=== PATIENT | female | born 1975 | race Two or more races ===

== ENCOUNTER → 2025-03-21 23:59 | Outpatient (BNV) | payer OTHER, SELFPAY | PROVIDERS: PCP Internal Medicine; Visit Provider Psychiatry & Neurology Neurology | DX: G56.22 Lesion of ulnar nerve, left upper limb (principal) | CPT/HCPCS: 95886; 95909 ==

== ENCOUNTER 2025-06-30 10:25 | Outpatient (REF) | payer OTHER, SELFPAY | END 2025-06-30 10:26 | disposition home or self-care (01) | LOC: HO.HPHYSR 10:25 | PROVIDERS: PCP Internal Medicine; Visit Provider Physical Medicine & Rehabilitation | DX: M46.1 Sacroiliitis, not elsewhere classified (principal); M53.3 Sacrococcygeal disorders, not elsewhere classified | CPT/HCPCS: 27096; J2003; J3301; Q9967 ==

== ENCOUNTER 2025-06-30 10:25 | Outpatient (AMB) | payer OTHER, SELFPAY ==
--- OUTSIDE RECORDS SUMMARY | 2024-05-06 13:46 | XMS_ITS | Encounter Summary ---
Author Organization [facility] Address [address] [place] [address] Care Team Providers Care Records Coordinator Name Role Phone Alvaro De León MD Primary Care Provider Encounter Details Date Type Department Care Team (Late st Contact Info) Description 05/06/2024 2:46 PM EDT Hospital Encounter TH HISTORIC ENCOUNTERS [facility] CONVERSION ONLY Social History Tobacco Use Types Packs/Day Years Used Date Smoking Tobacco: Never Smokeless Tobacco: Never Alcohol Use Standard Drinks/Week Comments Not Currently 0 (1 standard drink = 0.6 oz pur e alcohol) Comments Unknown Sex and Gender Information Value Date Recorded Sex Assigned at Female 01/24/2025 2:54 PM EDT Legal Sex Female 10:26 AM EST Gender Identity Female 08/03/2024 3:42 PM EST Sexual Orientation Lesbian or [place] 01/24/2025 2: 54 PM EDT Sexual Orientation Straight 01/24/2025 2: 54 PM EDT documented as of this encounter Last Filed Vital Signs Vital Sign Reading Time Taken Comments Blood Pressure - - Pulse - - Temperature - - Respiratory Rate - - Oxygen Saturation - - Inhaled Oxygen Concentration - - Weight 89.9 kg (198 lb 3.2 oz) 01/06/2024 1:19 P M EDT Height 156.2 cm (5' 1.5 ) 01/06/2024 1:19 PM EDT Body Mass Index 36.84 01/06/2024 1:19 PM EDT documented in this encounter Progress Notes * Historical, Notes Results - 05/06/2024 3:00 PM EDT 1455: PT arrives today for monthly B12 injection. PT denies any acute concerns at all, stable assessment. PT given water, denies concerns, call dominguez in reach. 1520: B12 administered into LEFT arm SQ, well tolerated without concern. PT provided with future apt reminders via calendar, denies other concerns, left unit, stable at D/C. documented in this encounter Plan of Treatment Upcoming Encounters Date Type Department Care Team (Late st Contact Info) Description 07/03/2025 2:00 PM EST Treatment [facility] Occupational Therapy [address] [phone] Opal Diego COTA 07/11/2025 1:15 PM EST Treatment [facility] Occupational Therapy [address] [phone] Ja Wetzel OT 07/31/2025 2:00 PM EST Office Visit [facility] Hematology Oncology [address] [place] [phone] Theresa Mejia PA [address] [place] [address] 08/30/2025 2:00 PM EST Office Visit Orthopedic Surgery [facility] 175 [facility] [address] [place] [phone] Arina Castaneda PA 175 [facility] [address] [place] [phone] 10/30/2025 2:00 PM EDT Office Visit Bariatric Surgery [facility] 175 [facility] [address] [place] [phone] Kyra Tinajero PA [address] [place] [phone] documented as of this encounter Goals Goal Patient Goal Type Associated Problems Recent Progress Patient-Stated? Author OT pt goals General Yes Miguel Haynes Note: For my arm to work better and have less pain OT LTGs 10-12 visits General No Miguel Haynes Note: Pt will report 0/10 pain in R sh at rest. Pt will demo R sh AROM improved by >=20* to improve ability to reach overhead cabinets. Pt will demo L sh flex AROM improved by >=20* to improve ability to dust shelves. Pt will demo B spice fumigator strength >=35 to improve ability to lift granddaughter. Pt will demo B pinch strength improved by >=3lbs to improve ability to open tight containers. Pt will demo increased functional use of BUEs evidenced by Qdash score <=25 to improve ability to do laundry. Pt will perform updated HEP Ledy. OT STGs 4-6 visits General No Miguel Haynes Note: Pt will report 2/10 pain in R sh at rest. Pt will demo R sh AROM improved by >=10* to improve ability to don pull-over shirt. Pt will demo L sh flex AROM improved by >=10* to improve ability to doff jacket. Pt will demo B spice fumigator strength >=28 to improve ability to carry groceries. Pt will demo B pinch strength improved by >=1lbs to improve ability to tear seasoning packets. Pt will demo increased functional use of BUEs evidenced by Qdash score <=40 to improve ability to meal prep. Pt will perform initial HEP Ledy. documented as of this encounter Visit Diagnoses Not on filedocumented in this encounter Care Teams Records Coordinator Relationship Specialty Start Date End Date Alvaro De León MD [address] [place] [address] PCP - General 04/25/24 documented as of this encounter
--- OUTSIDE RECORDS SUMMARY | 2025-06-29 14:00 | XMS_ITS | Encounter Summary ---
Author Organization [facility] Address [address] [place] [address] Care Team Providers Care Plate Shop Helper Name Role Phone Alvaro De León MD Primary Care Provider [phone] Reason for Referral * Orthopedic (Routine) - Pending Review Specialty Diagnoses / Procedures Referred By Mary Jane jones Referred To Contact Orthopedic Surgery / Orthopaedic Surgery Diagnoses Right shoulder pain Procedures L Inj/Asp: R subacromial bursa Arina Castaneda PA [address] [address] Phone: tel: fax: Referral ID Status Reason Start Date Expiration Date V isits Requested Visits Authorized [id number] Pending Review 06/29/2025 06/29/2026 1 1 Reason for Visit * Reason Comments Consult COMPLAINT SPECIALIST - R SHOULDER PAIN OCCASIONAL NUMBNESS AND TINGLING Pain COMPLAINT SPECIALIST - R SHOULDER PAIN OCCASIONAL NUMBNESS AND TINGLING Encounter Details Date Type Department Care Team (Late st Contact Info) Description 06/29/2025 2:00 PM EST Office Visit Orthopedic Surgery [facility] [address] [phone] Arina Castaneda PA [address] [address] Right shoulder pain (Primary Dx) Social History Tobacco Use Types Packs/Day Years [...] - Inhaled Oxygen Concentration - - Weight 77.1 kg (170 lb) 06/29/2025 2:05 PM EST Height 154.9 cm (5' 1 ) 06/29/2025 2:05 PM EST Body Mass Index 32.12 06/29/2025 2:05 PM EST documented in this encounter Progress Notes * NATALIE Mao - 06/29/2025 2:00 PM ESTAssociated Order(s): L Inj/Asp: R subacromial bursa Post-Procedure Diagnose(s): Right shoulder pain Referring MD:No ref. provider found Ms. Rae is a 49 y.o. year old female who presents for consultation regarding Chief Complaint Patient presents with ??? Right Shoulder - Consult, Pain COMPLAINT SPECIALIST - R SHOULDER PAIN OCCASIONAL NUMBNESS AND TINGLING . HPI: 49-year-old [id number]-lhdj-orgdccei here for different problem of right shoulder pain ongoing for the past year but worsening. She has been seen by myself and Dr. Benjamin for cubital tunnel syndrome. She did have a previous EMG nerve conduction test that did show mild ulnar neuropathy on the left. She reports right shoulder pain over subacromial space and bicipital groove. Worse with activity. No radicular symptoms. She does have neck issues and has had prior surgery on her cervical spine many years ago. When she last saw Dr. Dr. Benjamin recommended physical therapy for her elbows and shoulders and she just started this. The shoulder therapy is difficult due to pain and stiffness in the right shoulder. Patient does have a history of right shoulder lipoma treated surgically with a coupleyears ago. She does feel it may be coming back. PAST MEDICAL HISTORY: Past Medical History: Diagnosis Date ??? Allergic rhinitis 11/24/2013 DX:Allergic rhinitis ??? Anxiety state 08/04/2005 DX:Anxiety state ??? CTS (carpal tunnel syndrome) 09/02/2017 DX:CTS (carpal tunnel syndrome); COMMENT: Bilateral--by EMG 08/2017 ??? Depressive disorder 08/04/2005 DX:Depressive disorder ??? Fibromyalgia 01/09/2014 DX:Fibromyalgia ??? GERD (gastroesophageal reflux disease) 10/24/2019 DX:GERD (gastroesophageal reflux disease) ??? History of colon polyps DX:History of colon polyps; COMMENT: 2 diminutive tubular adenomas of the transverse colon. Repeat colonoscopy in 2022. ??? Hyperlipidemia 12/09/2018 DX:Hyperlipidemia ??? Iron deficiency anemia 05/21/2005 DX:Iron deficiency anemia ??? Lupus (systemic lupus erythematosus) ([facility] V24, [facility] V28) 11/10/2014 DX:Lupus (systemic lupus erythematosus) ([facility]) ??? Morbid obesity with BMI of 40.0-44.9, adult (CMS/HCC V24, CMS/[facility] V28) 05/21/2005 DX:Morbid obesity with BMI of 40.0-44.9, adult ([facility]); COMMENT: Had Sleeve gastrectomy 10/2012, Dr Anthony ??? Obstructive sleep apnea 02/16/2017 DX:Obstructive sleep apnea; COMMENT: CPAP started 02/03/17. ??? Osteoarthritis of lumbar spine 12/04/2020 DX:Osteoarthritis of lumbar spine; COMMENT: 2013 surgery ??? Vitamin D deficiency 08/26/2017 DX:Vitamin D deficiency PAST SURGICAL HISTORY: Past Surgical History: Procedure Laterality Date ??? ABDOMINAL SURGERY 10/2012 PROCEDURE: HISTORICAL ABDOMINAL SURGERY; COMMENT: gastric sleeve surgery ??? BACK SURGERY 07/2013 PROCEDURE: HISTORICAL BACK SURGERY; COMMENT: R L4-5 and BL L5-S1 decompression, L4-S1 fusion Dr. Kaminski ??? BREAST BIOPSY Left 04/2017 PROCEDURE: BX BREAST; PERC NEEDLE CORE W/IMAG GUID; COMMENT: neg ??? BREAST REDUCTION 09/2014 PROCEDURE: SC BREAST REDUCTION ??? CARPAL TUNNEL RELEASE Left 07/04/2021 PROCEDURE: SC NEUROPLASTY &/TRANSPOS MEDIAN NRV CARPAL TUNNE; COMMENT: Dr. Kaminski ??? CARPAL TUNNEL RELEASE Right 10/10/2021 PROCEDURE: SC NEUROPLASTY &/TRANSPOS MEDIAN NRV CARPAL TUNNE ??? COLONOSCOPY 03/25/2010 PROCEDURE: HISTORICAL COLONOSCOPY; COMMENT: hemorrhoids ??? COLONOSCOPY 10/15/2017 PROCEDURE: HISTORICAL COLONOSCOPY; COMMENT: 2 diminutive tubular adenomas of the transverse colon. Repeat colonoscopy in 2022. Internal hemorrhoids. ??? HYSTERECTOMY 2013 PROCEDURE: HISTORICAL HYSTERECTOMY; COMMENT: partial, still has cervix and ovaries; endometriosis ??? LIPOMA RESECTION Right shoulder ??? NECK SURGERY 01/2020 PROCEDURE: HISTORICAL NECK SURGERY; COMMENT: C5-[address] Kaminski ??? OTHER SURGICAL HISTORY 12/2014 PROCEDURE: HISTORICAL PANNICULECTOMY ??? OTHER SURGICAL HISTORY 06/20/2020 PROCEDURE: ---- OTHER ----; COMMENT: conversion of sleeve gastrectomy to Tai-en-Y ??? TUBAL LIGATION 02/2002 PROCEDURE: HISTORICAL TUBAL LIGATION ??? UPPER GASTROINTESTINAL ENDOSCOPY 06/12/2010 PROCEDURE: SC UPPER GI ENDOSCOPY PERFORMED; COMMENT: gastritis. gastric biopsy: reactive gastropathy(Hpylori-), small bowel biopsy: nl ??? WISDOM TOOTH EXTRACTION PROCEDURE: HISTORICAL WISDOM TEETH EXTRACTION ACTIVE PROBLEMS LIST: Patient Active Problem List Diagnosis ??? Iron deficiency anemia following bariatric surgery ??? Alkaline phosphatase elevation ??? DIANA positive ??? Anemia ??? Anxiety ??? Atrophy of muscle ??? Tendinosis ??? Carpal tunnel syndrome, bilateral ??? Chronic constipation ??? Class 1 obesity due to excess calories with serious comorbidity and body mass index (BMI) of 33.0 to 33.9 in adult ??? Chronic pain of right knee ??? Cobalamin deficiency ??? Colon polyps ??? COVID-19 ??? Depression ??? Detrusor overactivity ??? Chronic back pain ??? Chronic headaches ??? Chronic pain syndrome ??? Fibromyalgia ??? GERD (gastroesophageal reflux disease) ??? Grieving ??? Hyperlipidemia ??? Hypertension ??? Insomnia ??? Moderate major depression (CMS/HCC V24, CMS/HCC V28) ??? Obstructive sleep apnea ??? Osteoarthritis of cervical spine ??? Osteoarthritis of lumbar spine ??? Pelvic floor dysfunction in female ??? Restless legs syndrome ??? Rosacea ??? Severe obesity (CMS/HCC V24, CMS/HCC V28) ??? Therapeutic opioid-induced constipation (OIC) ??? Urinary incontinence ??? Vitamin D deficiency ??? Bariatric surgery status ACTIVE MEDICATIONS: Current Outpatient Medications on File Prior to Visit Medication Sig Dispense Refill ??? amLODIPine (NORVASC) 2.5 mg tablet Take 1 tablet (2.5 mg total) by mouth 1 (one) time each day. ??? azelaic acid (FINACEA) 15 % gel Apply topically daily. After skin is thoroughly washed and patted dry, gently but thoroughly massage a thin film of azelaic acid cream into the affected area once daily - ??? azelastine (ASTELIN) 137 mcg (0.1 %) nasal spray spray or apply 1 spray inside Nose 2 (two) times a day. Use in each nostril as directed ??? cetirizine (ZyrTEC) 10 mg tablet Take 1 tablet (10 mg total) by mouth 1 (one) time each day. ??? cholecalciferol (VITAMIN D-3) 50 mcg (2,000 unit) capsule Take 1 capsule (2,000 Units total) bymouth 1 (one) time each day. ??? cyanocobalamin, vitamin B-12, 1,000 mcg tablet, sublingual Place 1,000 mcg under the tongue 1 (one) time each day. ??? docusate sodium (COLACE) 100 mg capsule Take 1 capsule (100 mg total) by mouth 1 (one) time each day. ??? folic acid (FOLVITE) 1 mg tablet Take 1 tablet (1 mg total) by mouth 1 (one) time each day. 90 each 1 ??? hydrocortisone 2.5 % cream Apply topically 2 (two) times a day. Apply sparingly to affected areas twice daily as needed ??? hydrOXYzine pamoate (VISTARIL) 25 mg capsule Take 1 capsule (25 mg total) by mouth 1 (one) timeeach day. ??? ketoconazole (NIZORAL) 2 % shampoo Apply topically 2 (two) times a week. Apply to damp skin, lather, leave on 5 minutes, and rinse ??? lactulose (CHRONULAC) solution Take 15 mL (10 g total) by mouth 2 (two) times a day. ??? MAGNESIUM ORAL Take 3 capsules by mouth daily. - Oral ??? MULTIVITAMIN WITH MINERALS ORAL Take by mouth. ??? naloxegoL (MOVANTIK) 25 mg tablet Take 1 tablet (25 mg total) by mouth 1 (one) time each day. ??? ondansetron (ZOFRAN) 4 mg tablet Take 1 tablet (4 mg total) by mouth every 8 (eight) hours if needed for nausea. 21 tablet 0 ??? OXcarbazepine (TRILEPTAL) 300 mg tablet Take 1 tablet (300 mg total) by mouth 2 (two) times a day. ??? oxyCODONE-acetaminophen (PERCOCET) 5-325 mg per tablet Take 1 tablet by mouth every 4 (four) hours if needed for moderate pain or severe pain. ??? pantoprazole (PROTONIX) 40 mg EC tablet Take 1 tablet (40 mg total) by mouth 1 (one) time each day before breakfast. Do not crush, chew, or split. 30 each 2 ??? polyethylene glycol (MIRALAX) 17 gram packet Take 17 g by mouth 1 (one) time each day. ??? propranolol LA (INDERAL LA) 120 mg 24 hr capsule Take 1 capsule (120 mg total) by mouth 1 (one)time each day. ??? pyridoxine (B-6) 100 mg tablet Take 1 tablet (100 mg total) by mouth 1 (one) time each day. ??? rOPINIRole (REQUIP) 1 mg tablet Take 1 tablet (1 mg total) by mouth 3 (three) times a day. ??? simethicone (MYLICON) 80 mg chewable tablet Chew 1 tablet (80 mg total) every 6 (six) hours if needed for flatulence. ??? simethicone (MYLICON) 80 mg chewable tablet Chew 1 tablet (80 mg total) every 6 (six) hours if needed (gas & bloating). 120 tablet 0 ??? swab (NO-STING SKIN-PREP MISC) Apply 1 spray topically 2 (two) times a day. When changing bandages ??? tirzepatide, weight loss, (Zepbound) 10 mg/0.5 mL injection Inject 0.5 mL (10 mg total) under the skin every 7 (seven) days. 2 mL 0 ??? tiZANidine (ZANAFLEX) 2 mg tablet Take 1 tablet (2 mg total) by mouth 2 (two) times a day as needed (for muscle spasm). ??? traZODone (DESYREL) 50 mg tablet Take 1 tablet (50 mg total) by mouth every night at bedtime. Take 1-3 tablets by mouth at bedtime ??? triamcinolone acetonide (KENALOG-40) 40 mg/mL injection Inject 1 mL (40 mg total) into the joint 1 (one) time. ??? valACYclovir (VALTREX) 500 mg tablet Take 1 tablet (500 mg total) by mouth. ??? busPIRone (BUSPAR) 15 mg tablet Take 1 tablet (15 mg total) by mouth 3 (three) times a day. No current facility-administered medications on file prior to visit. ALLERGIES: Allergies Allergen Reactions ??? Adhesive Tape-Silicones ??? Amoxicillin Diarrhea ??? Animal Dander cats ??? Silver Rash PHYSICAL EXAM: Visit Vitals Ht 1.549 m (61 ) Wt 77.1 kg (170 lb) BMI 32.12 kg/m?? Smoking Status Never BSA 1.76 m?? APPEARANCE: Alert and in no acute distress EXTREMITIES: Right shoulder on the anterior aspect he has a healed surgical excision from prior lipoma removal. Adjacent and proximal to this incision she does have what looks like another lipoma forming. No other skin abnormalities, swelling or atrophy seen. Active forward flexion is 158 with pain, internal rotation L1 and external rotation 50. Passively forward flexion 160 with pain, abduction external rotation to 100 and external rotation 55. Positive Neer's and Jay test and positive [place]'s test. Pain over bicipital groove and subacromial space. Strength intact in IR, ER and supraspinatus. LABS: None IMAGING: I did order a left elbow x-ray today however patient went down to our x-ray and had a little bit ofwai and was unable to stay.t XR Shoulder 2+ Views Right Date of Visit: 06/29/2025 Reason for visit: Right shoulder pain Views: AP, Grashey, Y, axillary right shoulder Comparison: 2020 Findings: Bone spur formation at the lateral and inferior portion of the acromion. Mild AC joint arthritis. No significant narrowing of subacromial space or proximal migration humeral head. No glenohumeral arthritis. Cystic changes at the humeral head. No calcifications Impression: Mild AC joint arthritis and bone spur formation. Cystic changes at humeral head. No acute findings. EMG nerve conduction test: Nerve test was done March 21 at [facility] which did show cubital tunnel on the left ASSESSMENT AND PLAN: 1. Right shoulder pain The details of the visit were reviewed with the patient. Pertinent history, and objective findings were reviewed, along with the diagnoses: Right shoulder bursitis. Cannot completely rule out labral pathology. Recommended continued physical therapy but also discussed cortisone injection to subacromial space to help with pain and inflammation. Proceeded with cortisone injection to right subacromial space. Follow-up in 2 months time for clinical recheck. At that time we can also check her elbow and see how her cubital tunnel syndrome symptoms are feeling. L Inj/Asp: R subacromial bursa Indications: pain Details: 22 G needle, anterolateral approach Medications: 3 mL lidocaine 1 %; 40 mg triamcinolone acetonide 40 mg/mL Informed Consent: Laterality: Right Relevant images/test results available and reviewed: yes Health status cleared: Yes Procedure/treatment, purpose, treatment alternatives, risks/potential complications and benefits explained: yes Risk/complications/benefits details: Risks of infection, thinning of the skin and temporary skin discoloration discussed. Discussed risks of temporary increased pain after injection and swelling and mild redness at injection site for couple days. Explained occasionally cortisone injection can causefacial flushing temporarily. Benefits pain management. For postop injection pain ice, Tylenol and/or NSAIDs if patient can take Patient questions answered: yes Patient agrees, verbalizes understanding, and wants to proceed: yes Consent given by: Patient Informed consent discussion completed by Physician/DEAN with patient: Verbal Pre-procedure timeout performed: yes Ros Rae acknowledges understanding of the above plan and agrees to follow recommendations and/or take medications as prescribed. NATALIE Mao cc: No ref. provider found documented in this encounter Plan of Treatment Upcoming Encounters Date Type Department Care Team (Dilcia Contact Info) Description 07/03/2025 2:00 PM EST Treatment [facility] Occupational Therapy 175 [facility] [address] [place] [phone] Opal Diego COTA 07/11/2025 1:15 PM EST Treatment [facility] Occupational Therapy 175 [facility] [address] [place] [phone] Ja Wetzel, OT 07/31/2025 2:00 PM EST Office Visit [facility] Hematology Oncology [address] [place] [phone] Theresa Mejia PA [address] [place], [place] [phone] 08/30/2025 2:00 PM EST Office Visit Orthopedic Surgery [facility] 175 [facility] [address] [place] [phone] Arina Castaneda PA 175 [facility] [address] [place] [phone] 10/30/2025 2:00 PM EDT Office Visit Bariatric Surgery [facility] 175 [facility] [address] [place] [phone] Kyra Tinajero PA [address] [place] [phone] documented as of this encounter Goals Goal [...] to dust shelves. Pt will demo B stripper and opaquer apprentice strength >=35 to improve ability to lift granddaughter. Pt will demo B pinch strength improved by >=3lbs to improve ability to open tight containers. Pt will demo increased functional use of BUEs evidenced by Qdash score <=25 to improve ability to do laundry. Pt will perform updated HEP Ledy. OT STGs 4-6 visits Miguel Ernandez Note: Pt will report 2/10 pain in R sh at rest. Pt will demo R sh AROM improved by >=10* to improve ability to don pull-over shirt. Pt will demo L sh flex AROM improved by >=10* to improve ability to doff jacket. Pt will demo B stripper and opaquer apprentice strength >=28 to improve ability to carry groceries. Pt will demo B pinch strength improved by >=1lbs to improve ability to tear seasoning packets. Pt will demo increased functional use of BUEs evidenced by Qdash score <=40 to improve ability to meal prep. Pt will perform initial HEP Ledy. documented as of this encounter Procedures Procedure Name Priority Date/Time Associated Diagnosis Comments SC ARTHROCENTESIS/ASPI RATION/INJECTION MAJOR JOINT/BURSA W/O U/S GUIDANCE Routine 06/29/2025 2:00 PM EST Right shoulder pain documented in this encounter Results * XR Shoulder 2+ Views Right (06/29/2025 2:53 PM EST) Anatomical Region Laterality Modality Upper Extremities, Shoulder Right Comp uted Radiography Narrative 06/29/2025 3:51 PM EST Date of Visit: 06/29/2025 Reason for visit: Right shoulder pain Views: AP, Grashey, Y, axillary right shoulder Comparison: 2020 Findings: Bone spur formation at the lateral and inferior portion of the acromion. Mild AC joint arthritis. No significant narrowing of subacromial space or proximal migration humeral head. No glenohumeral arthritis. Cystic changes at the humeral head. No calcifications Impression: Mild AC joint arthritis and bone spur formation. Cystic changes at humeral head. No acute findings. us Arina ESTRADA IMG XR PROCEDURES Final Resul t * SC ARTHROCENTESIS/ASPIRATION/INJECTION MAJOR JOINT/BURSA W/O U/S GUIDANCE (06/29/2025 2:00 PM EST) Arina Hickman PA - 06/29/2025 2:00 PM EST NATALIE Mao 06/29/2025 3:54 PM L Inj/Asp: R subacromial bursa Indications: pain Details: 22 G needle, anterolateral approach Medications: 3 mL lidocaine 1 %; 40 mg triamcinolone acetonide 40 mg/mL Informed Consent: Laterality: Right Relevant images/test results available and reviewed: yes Health status cleared: Yes Procedure/treatment, purpose, treatment alternatives, risks/potential complications and benefits explained: yes Risk/complications/benefits details: Risks of infection, thinning of the skin and temporary skin discoloration discussed. Discussed risks of temporary increased pain after injection and swelling and mild redness at injection site for couple days. Explained occasionally cortisone injection can cause facial flushing temporarily. Benefits pain management. For postop injection pain ice, Tylenol and/or NSAIDs if patient can take Patient questions answered: yes Patient agrees, verbalizes understanding, and wants to proceed: yes Consent given by: Patient Informed consent discussion completed by Physician/DEAN with patient: Verbal Pre-procedure timeout performed: yes us Arina ESTRADA IN CLINIC/BEDSIDE ORDERABLES Final Result documented in this encounter Visit Diagnoses Diagnosis Right shoulder pain- Primary Pain in joint, shoulder region documented in this encounter Administered Medications Inactive Administered Medications - up to 3 most recent administrations Medication Order MAR Action Action Date Dose Rate Site lidocaine (XYLOCAINE) 1 % injection 3 mL 3 mL, Once PRN Procedure, Starting on Noris 06/29/25 at 1400, For 1 doseIndications:Right shoulder pain Given 06/29/2025 2:00 PM EST 3 mL triamcinolone acetonide (KENALOG-40) 40 mg/mL injection 40 mg 40 mg, Once PRN Procedure, Starting on Noris 06/29/25 at 1400, For 1 doseIndications:Right shoulder pain Given 06/29/2025 2:00 PM EST 40 mg documented in this encounter Care Teams Plate Shop Helper Relationship Specialty Start Date End Date Alvaro De León MD [address] [place] [id number] PCP - General 04/25/24 documented as of this encounter
[2025-06-30 10:32] VITALS: BP 176/91; PULSE 71; BMI 32.1
--- NOTE | 2025-06-30 10:32 | A.PHYSOV ---
Vital Signs 06/30/25 10:32 Height 5 ft 1 in Weight 170 lb BMI 32.1 BP 176/91 H Pulse 71 Intake Visit Reasons: Left Sacroiliac Joint Injection Allergies adhesive Allergy (Unknown, Verified 06/28/25 12:34) Unknown amoxicillin Allergy (Unknown, Verified 06/28/25 12:34) Unknown Seasonal Allergies Allergy (Unknown, Verified 06/28/25 12:34) Unknown silicone Allergy (Unknown, Uncoded 06/28/25 12:34) Unknown [facility] Medical History (Updated 06/30/25 @ 10:45 by Alvin Romo DO) Sacroiliac inflammation Sacroiliac dysfunction Surgical History H/O tubal ligation (Unknown) History of neck surgery (Unknown) H/O: hysterectomy (Unknown) History of gastric bypass (Unknown) History of carpal tunnel surgery (Unknown) History of back surgery (Unknown) Social History Household Members: Significant Other Alcohol intake: current Alcohol intake frequency: holidays/special occasions only Patient Tobacco Use Status: Never used Tobacco Current occupational status: unemployed Physical Exam Vital Signs: Last Vital Signs Pulse 71 06/30/25 10:32 BP 176/91 H 06/30/25 10:32 BMI result Body Mass Index 32.1 Office Procedures AMB Sacroiliac Joint Injection AMB Sacroiliac Joint Injection Procedure Details: Procedure performed: Left sacroiliac joint injection Preop diagnosis: SI joint mediated pain, sacroiliitis Postop diagnosis: The same Anesthesia: Local After informed consent was obtained patient was brought into the procedure room and placed in prone position on the procedure table. Skin over lumbar sacral area was prepped and draped in the usual sterile manner. The inferior portion of the left sacroiliac joint was visualized utilizing fluoroscopy. 5 in 22 gauge spinal needle was introduced percutaneously and advanced into the joint. Needle placement was verified utilizing 0.5 cc of Omnipaque contrast solution. 2.5 cc of therapeutic solution containing 40 mg of triamcinolone and 2% lidocaine was injected after negative aspiration for blood. The C-arm was obliqued about 30? in the contralateral direction an area just medial the proximal portion of the sacroiliac joint was visualized. 5 in 22 gauge spinal needle was introduced percutaneously and advanced to enter the area. Once in place, needle placement was identified utilizing 1 cc of Omnipaque contrast solution. Total volume of 2.5 cc containing 40 mg of triamcinolone and 2% lidocaine was injected to block the lateral branches at the sacroiliac ligament. Radiation exposure was documented in the chart. Sacroiliac Joint Injections 39620 - use with FL Gd order: Left All charges added?: Procedure code (CPT) selection complete Office Meds Kenalog 40 mg/mL suspension for injection Performing Provider: Alvin Romo DO Performing Location: [facility] Administered by: Alvin Romo DO on 06/30/25 10:46 Dose Route Admin Location Dispensed Lot Number Expiration Date [facility] [employer] 80 mg intra-articular 2 mL [id number] [employer] Total Dispensed Waste 2 mL 0 % lidocaine (PF) 20 mg/mL (2 %) injection solution Performing Provider: Alvin Romo DO Per[facility] Administered by: Alvin Romo DO on 06/30/25 10:46 Dose Route Admin Location Dispensed Lot Number Expiration Date [facility] [employer] 120 mg intra-articular 10 mL [id number] [employer] Total Dispensed Waste 10 mL 40 % Omnipaque 300 300 mg iodine/mL intravenous solution Performing Provider: Alvin Romo DO Performing [facility] Administered by: Alvin Romo DO on 06/30/25 10:46 Dose Route Admin Location Dispensed Lot Number Expiration Date [facility] [employer] 3 mL intra-articular 10 mL [id number] [employer] Total Dispensed Waste 10 mL 70 % Assessment & Plan Assessment & Plan (1) Sacroiliac dysfunction: Code(s): M53.3 - Sacrococcygeal disorders, not elsewhere classified Category: Medical Plan: Procedure (2) Sacroiliac inflammation: Code(s): M46.1 - Sacroiliitis, not elsewhere classified Category: Medical Plan: Procedure Orders: Orders [place] Guided Sacroiliac Jt Inj LT Today M46.1 - Sacroiliitis, not elsewhere classified, M53.3 - Sacrococcygeal disorders, not elsewhere classified AMB Sacroiliac Joint Injection Today M46.1 - Sacroiliitis, not elsewhere classified, M53.3 - Sacrococcygeal disorders, not elsewhere classified Coding Level of Care Code Procedure Only Diagnoses Sacroiliac dysfunction M53.3 Sacroiliac inflammation M46.1 CPT Codes AMB Sacroiliac Joint Injection - Hip intraarticular Injection - 46997: Left ([id number])
--- OUTSIDE RECORDS SUMMARY | 2025-06-30 12:11 | XMS_ITS | Clinical Summary ---
Author Organization [facility] Address [address] [place] [address] Phone Care Team Providers Care Billing Auditor Name Role Phone Alvaro De León MD Primary Care Provider [phone] Allergies Active Allergy Reactions Criticality Noted Date Comments Adhesive Tape-Silicones 03/16/2023 Amoxicillin Diarrhea 02/10/2012 Animal Dander 03/16/2023 cats Silver Rash 05/02/2021 Medications amLODIPine (NORVASC) 2.5 mg tablet Take 1 tablet (2.5 mg total) by mouth 1 (one) time each day. 2 Active azelaic acid (FINACEA) 15 % gel Apply topically daily. After skin is thoroughly washed and patted dry, gently but thoroughly massage a thin film of azelaic acid cream into the affected area once daily - Active azelastine (ASTELIN) 137 mcg (0.1 %) nasal spray spray or apply 1 spray inside Nose 2 (two) times a day. Use in each nostril as directed 1 Active busPIRone (BUSPAR) 15 mg tablet Take 1 tablet (15 mg total) by mouth 3 (three) times a day. 1 Active cetirizine (ZyrTEC) 10 mg tablet Take 1 tablet (10 mg total) by mouth 1 (one) time each day. 2 Active cholecalciferol (VITAMIN D-3) 50 mcg (2,000 unit) capsule Take 1 capsule (2,000 Units total) by mouth 1 (one) time each day. 3 Active cyanocobalamin, vitamin B-12, 1,000 mcg tablet, sublingual Place 1,000 mcg under the tongue 1 (one) time each day. 3 Active docusate sodium (COLACE) 100 mg capsule Take 1 capsule (100 mg total) by mouth 1 (one) time each day. 2 Active hydrocortisone 2.5 % cream Apply topically 2 (two) times a day. Apply sparingly to affected areas twice daily as needed Active hydrOXYzine pamoate (VISTARIL) 25 mg capsule Take 1 capsule (25 mg total) by mouth 1 (one) time each day. 8 Active ketoconazole (NIZORAL) 2 % shampoo Apply topically 2 (two) times a week. Apply to damp skin, lather, leave on 5 minutes, and rinse Active lactulose (CHRONULAC) solution Take 15 mL (10 g total) by mouth 2 (two) times a day. 2 Active MAGNESIUM ORAL Take 3 capsules by mouth daily. - Oral 3 Active MULTIVITAMIN WITH MINERALS ORAL Take by mouth. Activ e naloxegoL (MOVANTIK) 25 mg tablet Take 1 tablet (25 mg total) by mouth 1 (one) time each day. Active OXcarbazepine (TRILEPTAL) 300 mg tablet Take 1 tablet (300 mg total) by mouth 2 (two) times a day. Active oxyCODONE-acetam inophen (PERCOCET) 5-325 mg per tablet Take 1 tablet by mouth every 4 (four) hours if needed for moderate pain or severe pain. 2 Active polyethylene glycol (MIRALAX) 17 gram packet Take 17 g by mouth 1 (one) time each day. 0 Active propranolol LA (INDERAL LA) 120 mg 24 hr capsule Take 1 capsule (120 mg total) by mouth 1 (one) time each day. 3 Active pyridoxine (B-6) 100 mg tablet Take 1 tablet (100 mg total) by mouth 1 (one) time each day. Active rOPINIRole (REQUIP) 1 mg tablet Take 1 tablet (1 mg total) by mouth 3 (three) times a day. Active simethicone (MYLICON) 80 mg chewable tablet Chew 1 tablet (80 mg total) every 6 (six) hours if needed for flatulence. 3 Active swab (NO-STING SKIN-PREP MISC) Apply 1 spray topically 2 (two) times a day. When changing bandages 2 Active tiZANidine (ZANAFLEX) 2 mg tablet Take 1 tablet (2 mg total) by mouth 2 (two) times a day as needed (for muscle spasm). 3 Active traZODone (DESYREL) 50 mg tablet Take 1 tablet (50 mg total) by mouth every night at bedtime. Take 1-3 tablets by mouth at bedtime Active triamcinolone acetonide (KENALOG-40) 40 mg/mL injection Inject 1 mL (40 mg total) into the joint 1 (one) time. Active valACYclovir (VALTREX) 500 mg tablet Take 1 tablet (500 mg total) by mouth. 9 Active folic acid (FOLVITE) 1 mg tablet Take 1 tablet (1 mg total) by mouth 1 (one) time each day. 90 each 1 5 04/04/20 26 Active simethicone (MYLICON) 80 mg chewable tablet Chew 1 tablet (80 mg total) every 6 (six) hours if needed (gas & bloating). 120 tablet 5 Active tirzepatide, weight loss, (Zepbound) 10 mg/0.5 mL injection Inject 0.5 mL (10 mg total) under the skin every 7 (seven) days. 2 mL 5 Active ondansetron (ZOFRAN) 4 mg tabletIndication s:Class 1 obesity due to excess calories with serious comorbidity and body mass index (BMI) of 33.0 to 33.9 in adult,Bariatric surgery status Take 1 tablet (4 mg total) by mouth every 8 (eight) hours if needed for nausea. 21 tablet 5 Active pantoprazole (PROTONIX) 40 mg EC tablet Take 1 tablet (40 mg total) by mouth 1 (one) time each day before breakfast. Do not crush, chew, or split. 30 each 2 08/22/19 26 Active Hospital, Clinic, or Other Facility Administered Medication Ordered Dose Route Frequency Start Date End Date Status lidocaine (XYLOCAINE) 1 % injection 3 mLIndications:Right shoulder pain 3 mL Once PRN Procedure 06/29/2025 06/29/2025 Ended triamcinolone acetonide (KENALOG-40) 40 mg/mL injection 40 mgIndications:Right shoulder pain 40 mg Once PRN Procedure 06/29/2025 06/29/2025 Ended Active Problems Problem Noted Date Diagnosed Date Anemia 01/23/2025 Chronic constipation 01/23/2025 Class 1 obesity due to exces s calories with serious comorbidity and body mass index (BMI) of 33.0 to 33.9 in adult 01/23/2025 Cobalamin deficiency 01/23/2025 Detrusor overactivity 01/23/2025 Moderate major depression (CMS/HCC V24, CMS/HCC V28) 01/23/2025 Severe obesity (CMS/HCC V24, CMS/HCC V28) 2024 Urinary incontinence 01/23/2025 Bariatric surgery status 01/23/2025 Alkaline phosphatase elevation 12/07/2024 Tendinosis 12/07/2024 Atrophy of muscle 05/20/2024 Chronic pain of right knee 05/20/2024 Colon polyps 05/20/2024 Chronic back pain 05/20/2024 Iron deficiency anemia following bariatric surge ry 03/17/2023 Pelvic floor dysfunction in female 01/21/2022 COVID-19 08/06/2021 Overview (01/23/2025): 08/17 Restless legs syndrome 07/12/2021 Rosacea 07/12/2021 Osteoarthritis of cervical spine 03/01/2021 Overview (01/23/2025): History of disc surgery January 2020 Dr Romo - Injection 2020 Grbaljeetving 12/05/2020 Insomnia 12/05/2020 Osteoarthritis of lumbar spine 12/04/2020 Overview (01/23/2025): 2014 surgery Chronic headaches 09/09/2020 Overview (01/23/2025): [facility] GERD (gastroesophageal reflux disease) 0 DIANA positive 08/08/2019 Overview (01/23/2025): Pos DIANA, arthralgias, myalgias. Normal or negative LISA, anti-dsDNA, complement, RF. Trial of prednisone, methotrexate, hydroxychloroquine unsuccessful 2014 Chronic pain syndrome 03/02/2019 Hyperlipidemia 12/09/2018 Hypertension 11/19/2018 Therapeutic opioid-induced constipation (OIC) Carpal tunnel syndrome, bilateral 09/02/2017 Overview (01/23/2025): Bilateral--by EMG 08/2017 Last Assessment & Plan: Patient is just over 2 weeks s/p right carpal tunnel release, is not experiencing any numbness tingling in the digits, incision is still sore but overall she is doing well. She still has a small area that is tender on the left proximal end of the incision, no wound drainage or skin breakdown noted. Patient is also s/p left carpal tunnel release 07/04/2021. The left carpal tunnel symptoms are improved, she states also has left ulnar neuritis, has a brace over the upper forearm just below the elbow, has an appointment to follow-up with Ortho later today, gets numbness tingling in the fifth left digit. She denies wound drainage, sweats chills, fevers. She is on chronic Percocet for her low back. Patient is doing well s/p right carpal tunnel release, can follow-up as needed. All postop questions answered. Vitamin D deficiency 08/26/2017 Obstructive sleep apnea 02/16/2017 Overview (01/23/2025): CPAP started 02/03/17. Fibromyalgia 01/09/2014 Anxiety 08/04/2005 Depression 08/04/2005 Overview (01/23/2025): Brigida Clark prescribing Encounters Date Type Department Care Team Description 06/29/2025 2:00 PM EST Office Visit Orthopedic Surgery - [address] [place] [address] Arina Castaneda PA Right shoulder pain (Primary Dx) 06/19/2025 1:45 PM EST Treatment [facility] Occupational Therapy [address] [phone] Opal Diego COTA Cubital tunnel syndrome on left (Primary Dx); Shoulder joint stiffness, bilateral 06/05/2025 1:00 PM EST Evaluation [facility] Occupational Therapy [address] [phone] Ja Wetzel OT Cubital tunnel syndrome on left (Primary Dx); Shoulder joint stiffness, bilateral 06/05/2025 Plan of Care Documentation [facility] Occupational Therapy [address] [phone] 05/24/2025 2:00 PM EDT Office Visit Bariatric Surgery [address] [place] [phone] Kyra Tinajero PA Class 1 obesity due to excess calories with serious comorbidity and body mass index (BMI) of 33.0 to 33.9 in adult (Primary Dx); Bariatric surgery status 05/15/2025 10:48 AM EDT - 05/15/2025 11:59 PM EDT Hospital Encounter [facility] MRI [address] [place] [phone] Radiculopathy Discharge Disposition: Home or Self Care 05/09/2025 2:00 PM EDT Office Visit Orthopedic Surgery [facility] 175 [facility] [address] [place] [phone] Jennifer Benjamin MD Cubital tunnel syndrome on left (Primary Dx); Left elbow pain; Shoulder joint stiffness, bilateral 04/05/2025 2:30 PM EDT Office Visit Orthopedic Surgery [facility] 175 [facility] [address] [place] [phone] Arina Castaneda PA Cubital tunnel syndrome on left (Primary Dx) from Last 3 Months Immunizations Immunization Administration Dates Next Due Pfizer (ages 12 & older) GELACIO S-CoV-2 COVID-19, mRNA, LNP-S, armiro-sucrose, preservative free 08/23/2021 Surgical History Surgery Date Site/Laterality Comments TUBAL LIGATION 02/2002 PROCEDURE: HISTORICAL TUBAL LIGATION BREAST REDUCTION 09/2014 PROCEDURE: DE BREAST REDUCTION HYSTERECTOMY 2013 PROCEDURE: HISTORICAL HYSTERECTOMY; COMMENT: partial, still has cervix and ovaries; endometriosis ABDOMINAL SURGERY 10/2012 PROCEDURE: HISTORICAL ABDOMINAL SURGERY; COMMENT: gastric sleeve surgery COLONOSCOPY 03/25/2010 PROCEDURE: HISTORICAL COLONOSCOPY; COMMENT: hemorrhoids COLONOSCOPY 10/15/2017 PROCEDURE: HISTORICAL COLONOSCOPY; COMMENT: 2 diminutive tubular adenomas of the transverse colon. Repeat colonoscopy in 2022. Internal hemorrhoids. BREAST BIOPSY 04/2017 Left PROCEDURE: BX BREAST; PERC NEEDLE CORE W/IMAG GUID; COMMENT: neg UPPER GASTROINTESTINAL ENDOSCOPY 06/12/2010 PROCEDURE: DE UPPER GI ENDOSCOPY PERFORMED; COMMENT: gastritis. gastric biopsy: reactive gastropathy(Hpylori-), small bowel biopsy: nl BACK SURGERY 07/2013 PROCEDURE: HISTORICAL BACK SURGERY; COMMENT: R L4-5 and BL L5-S1 decompression, L4-S1 fusion Dr. Kaminski OTHER SURGICAL HISTORY 12/2014 PROCEDURE: HISTORICAL PANNICULECTOMY WISDOM TOOTH EXTRACTION PROCEDURE: HISTORICAL WISDOM TEETH EXTRACTION NECK SURGERY 01/2020 PROCEDURE: HISTORICAL NECK SURGERY; COMMENT: C5-[address] Kaminski OTHER SURGICAL HISTORY 06/20/2020 PROCEDURE: ---- OTHER ----; COMMENT: conversion of sleeve gastrectomy to Tai-en-Y CARPAL TUNNEL RELEASE 07/04/2021 Left PROCEDURE: DE NEUROPLASTY &/TRANSPOS MEDIAN NRV CARPAL TUNNE; COMMENT: Dr. Kaminski CARPAL TUNNEL RELEASE 10/10/2021 Right PROCEDURE: DE NEUROPLASTY &/TRANSPOS MEDIAN NRV CARPAL TUNNE LIPOMA RESECTION Right shoulder Medical History Medical History Date Comments Allergic rhinitis 11/24/2013 DX:Allergic rh initis Anxiety state 08/04/2005 DX:Anxiety state CTS (carpal tunnel syndrome) 09/02/2017 DX: CTS (carpal tunnel syndrome); COMMENT: Bilateral--by EMG 08/2017 Depressive disorder 08/04/2005 DX:Depressiv e disorder Fibromyalgia 01/09/2014 DX:Fibromyalgia History of colon polyps DX:Histo ry of colon polyps; COMMENT: 2 diminutive tubular adenomas of the transverse colon. Repeat colonoscopy in 2022. Iron deficiency anemia 05/21/2005 DX:Iron d eficiency anemia Lupus (systemic lupus erythe matosus) (CMS/HCC V24, CMS/HCC V28) 11/10/2014 DX:Lupus (systemic lupus erythematosus) ([facility]) Morbid obesity with BMI of 4 0.0-44.9, adult ([facility] V24, [facility] V28) 05/21/2005 DX:Morbid obesity wit h BMI of 40.0-44.9, adult ([facility]); COMMENT: Had Sleeve gastrectomy 10/2012, Dr Anthony Obstructive sleep apnea 02/16/2017 DX:Obstr uctive sleep apnea; COMMENT: CPAP started 02/03/17. Vitamin D deficiency 08/26/2017 DX:Vitamin D deficiency Hyperlipidemia 12/09/2018 DX:Hyperlipidemi a GERD (gastroesophageal reflux disease) 10/24/2019 DX:GERD (gastroesophageal reflux disease) Osteoarthritis of lumbar spine 12/04/2020 D X:Osteoarthritis of lumbar spine; COMMENT: 2014 surgery Family History Medical History Relation Name Comments Other: LUPUS Aunt Asthma Brother Arthritis Father gout Coronary artery disease Father Diabetes Father Hypertension Father No Known Problems Maternal Grandfather No Known Problems Maternal Grandmother Dementia Mother Depression Mother Hypertension Mother Breast cancer Other aunt paternal No Known Problems Paternal Grandfather Coronary artery disease Paternal Grandmother Diabetes Paternal Grandmother Hypertension Paternal Grandmother Hypertension Sister Colon cancer Uncle later in life Relation Name Status Comments Aunt Brother Alive Father Maternal Grandfather Maternal Grandmother Mother Alive Other aunt paternal Alive Paternal Grandfather Paternal Grandmother Sister Alive Uncle Social History Tobacco Use Types Packs/Day Years [...] Orientation Straight 01/24/2025 2: 54 PM EDT Obstetrics History Last Filed Vital Signs Vital Sign Reading Time Taken Comments Blood Pressure 130/89 05/24/2025 1:58 PM EDT Pulse 75 05/24/2025 1:58 PM EDT Temperature 36.7 C (98.1 F) 01/24/2025 3:00 PM EDT Respiratory Rate 18 07/18/2024 3:25 PM EST Oxygen Saturation 100% 01/24/2025 3:00 PM EDT Inhaled Oxygen Concentration - - Weight 77.1 kg (170 lb) 06/29/2025 2:05 PM EST Height 154.9 cm (5' 1 ) 06/29/2025 2:05 PM EST Body Mass Index 32.12 06/29/2025 2:05 PM EST Plan of Treatment Upcoming Encounters Date Type Department Care Team (Late st Contact Info) Description 07/03/2025 2:00 PM EST Treatment [facility] Occupational Therapy [address] [phone] Opal Diego COTA 07/11/2025 1:15 PM EST Treatment [facility] Occupational Therapy [address] [phone] Ja Wetzel OT 07/31/2025 2:00 PM EST Office Visit [facility] Hematology Oncology [address] [place] [phone] Theresa Mejia PA [address] [place] [address] 08/30/2025 2:00 PM EST Office Visit Orthopedic Surgery [facility] 175 [facility] [address] [place] [phone] Arina Castaneda PA 175 [facility] [address] [place] [phone] 10/30/2025 2:00 PM EDT Office Visit Bariatric Surgery [facility] 175 [facility] [address] [place] [phone] Kyra Tinajero PA [address] [place] [phone] Health Maintenance Due Date Last Done Comments Cervical Cancer Screening: Pap Smear 1994 Breast Cancer Screening 05/26/2021 05/26/20 19, 04/09/2018, 04/13/2017, Additional history exists Cholesterol Screening (Lipid Panel) 07/05/2022 HIV Screening 07/05/2022 Hepatitis C Screening 07/05/2022 Medicare Annual Wellness Visit 07/05/2022 Social Influencers of Health Screening 07/05/2022 DTaP,Tdap,and Td Vaccines (3 - Td or Tdap) 07/07/2023 07/07/2013, 07/10/2002 Pneumococcal Vaccine: 50+ Years (1 of 1 - PCV) 2023 RSV Immunization Adult Patients (1 - Risk 50-74 years 1-dose series) 2023 Zoster Vaccines (1 of 2) 2023 Depression Screening 07/27/2024 Hypertension/CHF/CAD Annual BMP Blood Test 02/22/2025 02/23/2024 COVID-19 Vaccine ( season) 2025 06/26/2022, 08/23/2021, 12/29/2020, Additional history exists Influenza Vaccine (#1) 2025 , 06/22/2023, 05/01/2022, Additional history exists Colorectal Cancer Screening: Colonoscopy 06/29/2029 06/29/2024 Hepatitis B Vaccines Completed 05/31/2014, 12/20/2013, 11/16/2013 MMR Vaccines Aged Out 05/31/2014, 01/23/2014 No lo nger eligible based on patient's age to complete this topic HIB Vaccines Aged Out No longer eligi ble based on patient's age to complete this topic HPV Vaccines Aged Out No longer eligi ble based on patient's age to complete this topic Hepatitis A Vaccines Aged Out No long er eligible based on patient's age to complete this topic IPV Vaccines Aged Out No longer eligi ble based on patient's age to complete this topic Meningococcal ACWY Vaccine Aged Out N o longer eligible based on patient's age to complete this topic Meningococcal B Vaccine Aged Out No l onger eligible based on patient's age to complete this topic RSV Immunization Patients Under 20 months Aged Out No longer eligible based on patient's age to complete this topic Varicella Vaccines Aged Out No longer eligible based on patient's age to complete this topic Goals Goal Patient Goal Type Associated Problems [...] to dust shelves. Pt will demo B campus dean strength >=35 to improve ability to lift [...] to doff jacket. Pt will demo B campus dean strength >=28 to improve ability to carry groceries. Pt will demo B pinch strength improved by >=1lbs to improve ability to tear seasoning packets. Pt will demo increased functional use of BUEs evidenced by Qdash score <=40 to improve ability to meal prep. Pt will perform initial HEP Ledy. Procedures Procedure Name Priority Date/Time Associated Diagnosis Comments XR SHOULDER 2+ VIEWS RIGHT Routine 06/29/2025 2:53 PM EST Right shoulder pain DE ARTHROCENTESIS/ASPI RATION/INJECTION MAJOR JOINT/BURSA W/O U/S GUIDANCE Routine 06/29/2025 2:00 PM EST Right shoulder pain MR LUMBAR SPINE WO AND W CONTRAST Routine 05/15/2025 11:47 AM EDT Radiculopathy SCR MAMMO BI INCL CAD Routine 05/26/2019 3:00 PM EDT Encounter for screening mammogram for malignant neoplasm of breast from Last 3 Months or Most Recently Relevant to Health Maintenance Results * XR Shoulder 2+ Views Right [...] IMG XR PROCEDURES Final Resul t * DE ARTHROCENTESIS/ASPIRATION/INJECTION MAJOR JOINT/BURSA W/O U/S GUIDANCE (06/29/2025 2:00 PM EST) Narrative Arina Castaneda PA - 06/29/2025 2:00 PM EST NATALIE [...] Arina ESTRADA IN CLINIC/BEDSIDE ORDERABLES Final Result * MR Lumbar Spine wo and w Contrast (05/15/2025 11:47 AM EDT) Anatomical Region Laterality Modality L-spine, Spine Magnetic Resonan ce 05/17/2025 1:50 PM EDT Impressions 05/17/2025 2:00 PM EDT Posterior ariel and pedicle screw fusion L4-S1. There is bony fusion of the L5-S1 but not the L4-5 endplates. Degenerative changes as detailed above. A 17 mm left ovarian cyst is presumably functional in this perimenopausal age patient. -------- FINAL REPORT -------- Dictated By: Vijay Ye Dictated Date: 05/17/2025 13:50 ET Assigned Physician: Vijay Ye Reviewed and Electronically Signed By: Vijay Ye Signed Date: 05/17/2025 14:00 ET Workstation ID: [id number] Transcribed By: Self Edit Transcribed Date: 05/17/2025 13:50 ET Narrative 05/17/2025 2:00 PM EDT PROCEDURE: MRI of the lumbar spine with intravenous contrast. HISTORY: radiculopathy. TECHNIQUE: Sagittal and axial multisequence MRI of the lumbar spine with and without intravenous contrast administration. IV contrast dose: 15 mL Dotarem from a 15 mL vial with 0 mL discarded. COMPARISON: 11/16/2020. FINDINGS: Postsurgical scarring in the midline lower lumbar soft tissues and prominent fatty atrophy of the sacral paraspinous musculature which is likely secondary to denervation. 17 mm left ovarian cyst. No other paraspinous soft tissue findings. Posterior ariel and pedicle screw fusion L4-S1. There is bony fusion of the L5-S1 but not the L4-5 endplates. No concerning marrow infiltrative lesion. Mild Modic endplate signal anteriorly along the inferior L3 endplate. Small T2 hyperintense, T1 hypointense lesion in the L1 vertebral body. This is nonspecific but stable compared with the 2020 exam and likely a small atypical hemangioma. The conus is in a normal position at T12. No abnormal enhancement of the conus or nerve roots of the cauda equina. Lumbar disc levels: L1-2: Only imaged in the sagittal plane. Mild bilateral facet arthropathy. Minimal anterior endplate osteophytes. No spinal or foraminal stenosis. L2-3: Only imaged in the sagittal plane. Minimal anterior endplate osteophytes. Mild bilateral facet arthropathy. No spinal or foraminal stenosis. L3-4: Mild endplate irregularity. Minimal endplate osteophytes. Facets joints are partially obscured by susceptibility artifact, but there is mild degenerative irregularity with small osteophytes. Mild bilateral ligamentum flavum hypertrophy. No significant foraminal or spinal stenosis. L4-5: Mild disc space height loss and endplate irregularity. Fusion level. Small symmetric disc bulge with a small right central annular fissure. Facet joints are partially obscured by susceptibility artifact but appear mildly irregular. No spinal or foraminal stenosis. L5-S1: Fusion level. Moderate central focal disc osteophyte complex. Neural foramina partially obscured by susceptibility artifact. No high-grade foraminal stenosis. No spinal stenosis. Procedure Note Vijay Ye MD - 05/17/2025 PROCEDURE: MRI of the lumbar spine with intravenous contrast. HISTORY: radiculopathy. TECHNIQUE: Sagittal and axial multisequence MRI of the lumbar spine withand without intravenous contrast administration. IV contrast dose: 15 mL Dotarem from a 15 mL vial with 0 mL discarded. COMPARISON: 11/16/2020. FINDINGS: Postsurgical scarring in the midline lower lumbar soft tissues andprominent fatty atrophy of the sacral paraspinous musculature which islikely secondary to denervation. 17 mm left ovarian cyst. No otherparaspinous soft tissue findings. Posterior ariel and pedicle screw fusion L4-S1. There is bony fusion of theL5-S1 but not the L4-5 endplates. No concerning marrow infiltrativelesion. Mild Modic endplate signal anteriorly along the inferior [id number]. Small T2 hyperintense, T1 hypointense lesion in the M1bgaiiilwl body. This is nonspecific but stable compared with the xa and likely a small atypical hemangioma. The conus is in a normal position at T12. No abnormal enhancement of theconus or nerve roots of the cauda equina. Lumbar disc levels: L1-2: Only imaged in the sagittal plane. Mild bilateral facetarthropathy. Minimal anterior endplate osteophytes. No spinal orforaminal stenosis. L2-3: Only imaged in the sagittal plane. Minimal anterior endplateosteophytes. Mild bilateral facet arthropathy. No spinal or foraminalstenosis. L3-4: Mild endplate irregularity. Minimal endplate osteophytes. Facetsjoints are partially obscured by susceptibility artifact, but there ismild degenerative irregularity with small osteophytes. Mild bilateralligamentum flavum hypertrophy. No significant foraminal or spinalstenosis. L4-5: Mild disc space height loss and endplate irregularity. Fusionlevel. Small symmetric disc bulge with a small right central annularfissure. Facet joints are partially obscured by susceptibility artifactbut appear mildly irregular. No spinal or foraminal stenosis. L5-S1: Fusion level. Moderate central focal disc osteophyte complex.Neural foramina partially obscured by susceptibility artifact. Nohigh-grade foraminal stenosis. No spinal stenosis. IMPRESSION: Posterior ariel and pedicle screw fusion L4-S1. There is bony fusion of theL5-S1 but not the L4-5 endplates. Degenerative changes as detailed above. A 17 mm left ovarian cyst is presumably functional in this perimenopausalage patient. -------- FINAL REPORT -------- Dictated By: Vijay Ye Dictated Date: 05/17/2025 13:50 ET Assigned Physician: Vijay Ye Reviewed and Electronically Signed By: Vijay Ye Signed Date: 05/17/2025 14:00 ET Workstation ID: [id number] Transcribed By: Self Edit Transcribed Date: 05/17/2025 13:50 ET us Alvin Romo DO IMG MRI PROCEDURES Final Result * SCR MAMMO BI INCL CAD (05/26/2019 3:00 PM EDT) Anatomical Region Laterality Modality Radiographic Deb ging 04/09/2018 3:27 PM EDT Narrative 05/27/2019 10:38 AM EDT This is a summary report. The complete report is available in the patient's medical record. If you cannot access the medical record, please contact the sending organization for a detailed fax or copy. Exam: Screening mammogram Findings: Digital bilateral full-field screening mammography is performed and interpreted with the aid of computer-aided detection. Comparison is made with 04/09/2018 and as far back as 02/03/2014. Breast parenchyma is composed of scattered fibroglandular densities. No new suspicious mass, architectural distortion, or suspicious calcifications. Impression: No mammographic evidence of malignancy. BI-RADS 1 - negative 5 year breast cancer risk assessment 0.8 % Lifetime breast cancer risk assessment 7.4 % Breast cancer risk category Low (<15%) Procedure Note Deann Willis MD - 07/15/2022 This is a summary report. The complete report is available in thepatient's medical record. If you cannot access the medical record, pleasecontact the sending organization for a detailed fax or copy. Exam: Screening mammogram Findings: Digital bilateral full-field screening mammography is performedand interpreted with the aid of computer-aided detection. Comparison ismade with 04/09/2018 and as far back as 02/03/2014. Breast parenchyma is composed of scattered fibroglandular densities. Nonew suspicious mass, architectural distortion, or suspiciouscalcifications. Impression: No mammographic evidence of malignancy. BI-RADS 1 - negative 5 year breast cancer risk assessment 0.8 % Lifetime breast cancer risk assessment 7.4 % Breast cancer risk category Low (<15%) Fernie Nolan MD IMG XR PROCEDURES Final Result from Last 3 Months or Most Recently Relevant to Health Maintenance Insurance [facility] MEDIC[facility] Member Subscriber Plan / Payer (Ef fective 2019-Present) Name:ROS RAE Relation to Subscriber:Self Name:Ros Rae Payer ID:[id number] Group ID:[id number] Type:Not on file Address: [facility] [address] [id number] Care Teams Billing Auditor Relationship Specialty Start Date End Date Alvaro De León MD [facility] [place] [address] PCP - General 04/25/24
--- OUTSIDE RECORDS SUMMARY | 2025-06-30 12:11 | XMS_ITS | Clinical Summary ---
Author Organization [facility] Address [address] [place] [address] Care Team Providers Care Tire Design Engineer Name Role Phone Alvaro De León MD Primary Care Provider Social History Tobacco Use Types Packs/Day Years Used Date Smoking Tobacco: Never Assessed Comments Unknown Sex and Gender Information Value Date Recorded Sex Assigned at Not on file Legal Sex Female 6:02 PM EDT Gender Identity Not on file Sexual Orientation Not on file Plan of Treatment Health Maintenance Due Date Last Done Comments Hepatitis C Virus Screening 1973 HIV Screening 1986 DTaP/Tdap/Td Vaccines (1 - Tdap) 1992 Hepatitis B Vaccines (1 of 3 - 19+ 3-dose series) 03/1993 Pneumococcal Vaccines 50+ (1 of 1 - PCV) 2023 Zoster (Shingles) Vaccine (1 of 2) 2023 COVID-19 Vaccine (1 - 2023-25 season) 2025 RSV Vaccine 50 years and old er and Patients (1 - 1-dose 75+ series) 2048 Care Teams Tire Design Engineer Relationship Specialty Start Date End Date Alvaro De León MD [address] [place] [address] PCP - General
--- OUTSIDE RECORDS SUMMARY | 2025-06-30 12:11 | XMS_ITS | Clinical Summary ---
Author Organization [facility] Prior to 12/24/24 Address [address] [place] [address] Care Team Providers Care Training Technician Name Role Phone Alvaro De León MD Primary Care Provider [phone] Allergies Active Allergy Reactions Criticality Noted Date Comments Adhesive Tape 03/16/2023 Amoxicillin 03/16/2023 Animal Dander 03/16/2023 cats Tegaderm Alginate Ag Rope 03/16/2023 Medications Medication Sig Dispensed Refills Start Date End Date Status ondansetron (ZOFRAN) 4 MG tablet Take 1 tablet (4 mg total) by mouth every 8 (eight) hours as needed for nausea. 0 Active Cyanocobalamin (Vitamin B-12) [address] 1 tablet under the tongue daily. 0 Active pyridoxine (B-6) 100 MG tablet Take 1 tablet (100 mg total) by mouth daily. 0 Active simethicone (MYLICON) 80 MG chewable tablet Chew 1 tablet (80 mg total) by mouth every 6 (six) hours as needed for flatulence. 0 Active Naloxegol Oxalate 25 MG TABS Take 1 tablet by mouth daily. 0 Active propranolol (INDERAL LA) 120 MG 24 hr capsule Take 1 capsule (120 mg total) by mouth daily. 0 Active tiZANidine (ZANAFLEX) 2 MG tablet Take 1 tablet (2 mg total) by mouth 2 (two) times a day as needed (for muscle spasm). 0 Active Cholecalciferol 50 MCG (2000 UT) CAPS Take 1 capsule by mouth daily. 0 Active rOPINIRole (REQUIP) 1 MG tablet Take 1 tablet (1 mg total) by mouth 3 (three) times a day. 0 Active Magnesium 100 MG CAPS Take 3 capsules by mouth daily. 0 Active triamcinolone acetonide (KENALOG-40) 40 MG/ML injection Inject 1 mL (40 mg total) into the articular space once. 0 Active oxyCODONE-acetaminoph en (PERCOCET) 5-325 MG per tablet Take 1 tablet by mouth every 4 (four) hours as needed for pain. 0 Active omeprazole (PriLOSEC) 20 MG capsule Take 1 capsule (20 mg total) by mouth daily. 0 Active docusate sodium (COLACE) 100 MG capsule Take 1 capsule (100 mg total) by mouth daily. 0 Active SKIN PROTECTANTS, MISC. EX Apply 1 spray topically 2 (two) times a day. When changing bandages 0 Active amLODIPine (NORVASC) tablet 2.5 mg Take 1 tablet (2.5 mg total) by mouth daily. 0 Active Lactulose Encephalopathy (Enulose) 10 GM/15ML SOLN solution Take 15 mL by mouth 2 (two) times a day. 0 Active hydrocortisone 2.5 % cream Apply topically 2 (two) times a day. Apply sparingly to affected areas twice daily as needed 0 Active ketoconazole (NIZORAL) 2 % shampoo Apply topically 2 (two) times a week. Apply to damp skin, lather, leave on 5 minutes, and rinse 0 Active cetirizine (ZyrTEC) 10 MG tablet Take 1 tablet (10 mg total) by mouth daily. 0 Active traZODone (DESYREL) 50 MG tablet Take 1 tablet (50 mg total) by mouth every night at bedtime. Take 1-3 tablets by mouth at bedtime 0 Active busPIRone (BUSPAR) 15 MG tablet Take 1 tablet (15 mg total) by mouth 3 (three) times a day. 0 Active azelastine (ASTELIN) 0.1 % nasal spray spray or apply 1 spray inside Nose 2 (two) times a day. Use in each nostril as directed 0 Active Azelaic Acid 15 % cream Apply topically daily. After skin is thoroughly washed and patted dry, gently but thoroughly massage a thin film of azelaic acid cream into the affected area once daily 0 Active polyethylene glycol (MIRALAX) 17 g packet Take 17 g by mouth daily. 0 Active valACYclovir (VALTREX) 500 MG tablet Take 1 tablet (500 mg total) by mouth. 0 Active hydrOXYzine (VISTARIL) 25 MG capsule Take 1 capsule (25 mg total) by mouth daily. 0 Active OXcarbazepine (TRILEPTAL) 300 MG tablet Take 1 tablet (300 mg total) by mouth 2 (two) times a day. 0 Active MULTIPLE VITAMINS-MINERALS PO Take by mouth. 0 Active folic acid (FOLVITE) tablet 1 mg Take 1 tablet (1 mg total) by mouth daily. 90 tablet 0 01/06/2024 Active Active Problems Problem Noted Date Diagnosed Date Iron deficiency anemia following bariatric surge ry 03/17/2023 S/P gastric bypass 03/17/2023 Social History Tobacco Use Types Packs/Day Years Used Date Smoking Tobacco: Never Smokeless Tobacco: Never Alcohol Use Standard Drinks/Week Comments Yes 0 (1 standard drink = 0.6 oz pur e alcohol) Rare: 6 drinks a year Sex and Gender Information Value Date Recorded Sex Assigned at Not on file Gender Identity Not on file Sexual Orientation Not on file Job Start Date Occupation Industry Not on file Not on file Not on file Last Filed Vital Signs Vital Sign Reading Time Taken Comments Blood Pressure 157/96 05/06/2024 2:50 PM EDT Pulse 70 05/06/2024 2:50 PM EDT Temperature 36.4 C (97.6 F) 05/06/2024 2:50 PM EDT Respiratory Rate 16 05/06/2024 2:50 PM EDT Oxygen Saturation 100% 05/06/2024 2:50 PM EDT Inhaled Oxygen Concentration - - Weight 89.9 kg (198 lb 3.2 oz) 01/06/2024 1:19 P M EDT Height 156.2 cm (5' 1.5 ) 01/06/2024 1:19 PM EDT Body Mass Index 36.84 01/06/2024 1:19 PM EDT Plan of Treatment Health Maintenance Due Date Last Done Comments Hepatitis C Screening 1973 Depression Screening 1985 BMI Counseling 1991 Preventative Health Evaluation 1991 Cervical Cancer Screening (Pap Smear) 1994 Colon Cancer Screening (Colonoscopy) 2018 DTap / Tdap / Td (2 - Td or Tdap) 07/07/2023 07/07/2013, 07/10/2002 Breast Cancer Screening (Mammogram) 2023 Shingrix-Zoster Vaccine (1 of 2) 2023 COVID-19 Vaccine ( season) 2025 08/23/2021, 12/29/2020, 12/08/2020 Influenza Vaccine (#1) 2025 3, 05/01/2022, 05/01/2022, Additional history exists Hepatitis B Vaccines Completed 05/31/2014, 12/20/2013, 11/16/2013 Pneumococcal Vaccine Aged Out No long er eligible based on patient's age to complete this topic RSV Ped < 20 months Aged Out No longe r eligible based on patient's age to complete this topic Care Teams Training Technician Relationship Specialty Start Date End Date Alvaro De León MD [address] [place] [id number] PCP - General Internal Medicine 02/14/20
== END 2025-06-30 11:00 | disposition home or self-care (01) ==
LOC: HO.HPHYS 10:26
PROVIDERS: PCP Internal Medicine; Visit Provider Physical Medicine & Rehabilitation
DX: M53.3 Sacrococcygeal disorders, not elsewhere classified (principal); M46.1 Sacroiliitis, not elsewhere classified
CPT/HCPCS: 27096